=== PATIENT | female | born 1940 | race Caucasian/White ===

== ENCOUNTER 2017-08-14 15:18 | Emergency (ER) | payer MEDICARE, BC ==
[~2017-08-14] VITALS: Ht 167.6 cm; Wt 80.5 kg
[2017-08-14] MEDS ORDERED: DONE1TAB62 PO (15:51)
[2017-08-14] MEDS ORDERED: NAME28CA PO (15:51)
[2017-08-14] MEDS ORDERED: LISI10TA2 PO (15:51)
[2017-08-14] MEDS ORDERED: FLUO40CA PO (15:51)
[2017-08-14] MEDS ORDERED: POTA10TA16 PO (15:51)
[2017-08-14] MEDS ORDERED: LEVO-86 PO (15:51)
[2017-08-14] MEDS ORDERED: NS 1,000 ML IV SCH (16:25)
[2017-08-14] MEDS ORDERED: MECLIZINE 25 MG TABLET PO ONE (16:30)
--- NOTE | 2017-08-14 16:51 | REP ---
Clinical: Altered mental status . Comparison: 01/08/2011 . Technique: PA and lateral. Findings: The mediastinum and cardiac silhouette are normal. The lung calix are clear and without acute consolidation, effusion, or pneumothorax. The skeletal structures demonstrate degenerative changes of the bilateral shoulders. Evidence of prior cholecystectomy. Impression: 1. No acute cardiopulmonary process. Signed by Ross Butler MD 08/14/2017 04:42 P
[2017-08-14 17:05] LABS: VENOUS BASE EXCESS 1.4 (-2.0-2.0); VENOUS O2 SATURATION 74.5 % (60.0-80.0); VENOUS PARTIAL PRESSURE CO2 47.3 mmHg (38.0-50.0); VENOUS PARTIAL PRESSURE O2 38.9 mmHg (30.0-50.0); VENOUS STANDARD HCO3 25.1 MEQ/L; VENOUS TOTAL CO2 28.7 MEQ/L (24.0-28.0)
[2017-08-14 17:19] LABS: BASO % 0.6 % (0.0-1.0); EOS # 0.2 10^3/uL (0.0-0.50); IMMATURE GRANULOCYTE % 0.3 % (0-0); LYMPH # 0.7 10^3/uL (1.5-4.5); LYMPH % 11.3 % (24.0-44.0); MEAN CORPUSCULAR HGB CONC 34.2 g/dl (32.0-36.5); MEAN CORPUSCULAR VOLUME 90.8 fl (80.0-96.0); MONO # 0.8 10^3/uL (0.0-0.8); MONO % 12.1 % (0.0-5.0); NEUTROPHILS # 4.5 10^3/uL (1.8-7.7); NEUTROPHILS % 72.7 % (36.0-66.0); PLATELET COUNT, AUTOMATED 262 10^3/uL (150-450); RED CELL DISTRIBUTION WIDTH 13.2 % (11.5-14.5); WHITE BLOOD COUNT 6.3 10^3/uL (4.0-10.0)
[2017-08-14 17:32] LABS: ALBUMIN 3.9 GM/DL (3.2-5.2); ALBUMIN/GLOBULIN RATIO 1.39 (1.00-1.93); ALKALINE PHOSPHATASE 48 U/L (45-117); ANION GAP 7 MEQ/L (8-16); AST/SGOT 17 U/L (7-37); BILIRUBIN,DIRECT 0.2 MG/DL (0.0-0.2); BILIRUBIN,TOTAL 0.5 MG/DL (0.2-1.0); BLOOD UREA NITROGEN 32 MG/DL (7-18); CALCIUM LEVEL 10.3 MG/DL (8.8-10.2); CARBON DIOXIDE LEVEL 29 MEQ/L (21-32); CHLORIDE LEVEL 105 MEQ/L (98-107); CREATININE FOR GFR 1.62 MG/DL (0.55-1.02); GLOMERULAR FILTRATION RATE 32.8 (>39); GLUCOSE, FASTING 97 MG/DL (83-110); POTASSIUM SERUM 4.2 MEQ/L (3.5-5.1); SODIUM LEVEL 141 MEQ/L (136-145); TOTAL PROTEIN 6.7 GM/DL (6.4-8.2)
[2017-08-14 17:38] LABS: ALT/SGPT 31 U/L (12-78)
[2017-08-14] MEDS ORDERED: MECL-68 PO (17:58)
[2017-08-14 17:59] VITALS: BP 112/69
--- NOTE | 2017-08-16 06:00 | ECGEPIP ---
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
== END 2017-08-14 18:28 | disposition home or self-care (01) ==
LOC: M ED 15:18
DX: H81.10 Benign paroxysmal vertigo, unspecified ear (principal); H83.09 Labyrinthitis, unspecified ear; E86.0 Dehydration; I10 Essential (primary) hypertension; I25.10 Atherosclerotic heart disease of native coronary artery without angina pectoris; E07.9 Disorder of thyroid, unspecified; F03.90 Unspecified dementia, unspecified severity, without behavioral disturbance, psychotic disturbance, mood disturbance, and anxiety
CPT/HCPCS: 36415; 71020; 80048; 80076; 82550; 82553; 82803; 84443; 84484; 85025; 93005; 93041; 99284; G0480

== ENCOUNTER 2018-04-18 13:50 | Inpatient (IN) | payer MEDICARE, BC, MEDICAID ==
[2018-04-18 15:36] LABS: BASO % 0.7 % (0.0-1.0); EOS # 0.2 10^3/uL (0.0-0.50); EOS % 2.8 % (0.0-3.0); HEMATOCRIT 41.3 % (36.0-47.0); HEMOGLOBIN 13.2 g/dl (12.0-15.5); IMMATURE GRANULOCYTE % 1.2 % (0-3.0); LYMPH # 0.9 10^3/uL (1.5-4.5); MEAN CORPUSCULAR HEMOGLOBIN 29.6 pg (27.0-33.0); MEAN CORPUSCULAR VOLUME 92.6 fl (80.0-96.0); MONO # 0.6 10^3/uL (0.0-0.8); MONO % 9.7 % (0.0-5.0); NEUTROPHILS # 4.4 10^3/uL (1.8-7.7); NEUTROPHILS % 71.6 % (36.0-66.0); PLATELET COUNT, AUTOMATED 289 10^3/uL (150-450); RED BLOOD COUNT 4.46 10^6/uL (4.00-5.40); RED CELL DISTRIBUTION WIDTH 13.6 % (11.5-14.5); WHITE BLOOD COUNT 6.1 10^3/uL (4.0-10.0)
[2018-04-18 15:42] LABS: CALCIUM OXALATE CRYSTALS RFX MODERATE; KETONE, URINE AUTO RFX NEGATIVE (NEGATIVE); MUCUS, URINE RFX MODERATE (NEGATIVE); NITRITE, URINE AUTO RFX NEGATIVE (NEGATIVE); RBC, URINE AUTO RFX 0 /HPF (0-3); SPECIFIC GRAVITY UR AUTO RFX 1.024 (1.002-1.035); SQUAM EPITHELIAL CELL UR AURFX 14 /HPF (0-6); WBC, URINE AUTO RFX 8 /HPF (0-3)
[2018-04-18 15:43] LABS: LEUKOCYTE ESTERASE UR AUTO RFX 1+ (NEGATIVE)
[2018-04-18 16:02] LABS: AMMONIA 12 uMOL/L (<32)
[2018-04-18 16:06] LABS: LACTIC ACID SEPSIS PROTOCOL 1.7 MMOL/L (0.4-2.0)
[2018-04-18 16:09] LABS: ALBUMIN 3.7 GM/DL (3.2-5.2); ALBUMIN/GLOBULIN RATIO 0.95 (1.00-1.93); ALKALINE PHOSPHATASE 71 U/L (45-117); ALT/SGPT 28 U/L (12-78); ANION GAP 7 MEQ/L (8-16); AST/SGOT 17 U/L (7-37); BILIRUBIN,DIRECT 0.1 MG/DL (0.0-0.2); BILIRUBIN,TOTAL 0.4 MG/DL (0.2-1.0); BLOOD UREA NITROGEN 19 MG/DL (7-18); CALCIUM LEVEL 9.2 MG/DL (8.8-10.2); CARBON DIOXIDE LEVEL 30 MEQ/L (21-32); CHLORIDE LEVEL 107 MEQ/L (98-107); CPK CREATINE PHOSPHOKINASE 49 U/L (26-192); CREATININE FOR GFR 1.12 MG/DL (0.55-1.30); GLOMERULAR FILTRATION RATE 50.1 (>39); GLUCOSE, FASTING 111 MG/DL (70-100); POTASSIUM SERUM 3.5 MEQ/L (3.5-5.1); SODIUM LEVEL 144 MEQ/L (136-145); TOTAL PROTEIN 7.6 GM/DL (6.4-8.2); TROPONIN I < 0.02 NG/ML (< 0.10)
[2018-04-18 16:13] LABS: CK-MB VALUE MASS < 1.0 NG/ML (<3.6); MB/CK RELATIVE INDEX 2.04 (< OR =4); THYROID STIMULATING HORMONE 0.998 uIU/ML (0.358-3.740)
[2018-04-18] MEDS: LOTRISONE CREAM 15 GM (BETAMETH/CLOTRIMAZOLE) TOP (21:00)
[2018-04-18] MEDS ORDERED: hydrALAZINE INJ 20 MG/ML VIAL IV (21:30)
[2018-04-18] MEDS ORDERED: ONDANSETRON 4MG/2ML VIAL (J2405) IV (21:30)
[2018-04-18] MEDS: hydroCHLOROthiazide 12.5 MG CAPSULE PO (21:36)
[2018-04-18] MEDS: LISINOPRIL 20 MG TAB PO (21:36)
[2018-04-18] MEDS: cefTRIAXone SOD 1 GM in D5W MINI-BAG PLUS 50 ML IV (22:00)
[2018-04-18 22:58] LABS: CPK CREATINE PHOSPHOKINASE 50 U/L (26-192); TROPONIN I < 0.02 NG/ML (< 0.10)
[2018-04-18 22:59] LABS: CK-MB VALUE MASS < 1.0 NG/ML (<3.6)
[2018-04-19 03:56] LABS: HEMATOCRIT 37.2 % (36.0-47.0); MEAN CORPUSCULAR HEMOGLOBIN 29.3 pg (27.0-33.0); MEAN CORPUSCULAR HGB CONC 32.3 g/dl (32.0-36.5); MEAN CORPUSCULAR VOLUME 90.7 fl (80.0-96.0); PLATELET COUNT, AUTOMATED 252 10^3/uL (150-450); RED CELL DISTRIBUTION WIDTH 13.4 % (11.5-14.5); WHITE BLOOD COUNT 6.2 10^3/uL (4.0-10.0)
[2018-04-19 04:22] LABS: ANION GAP 8 MEQ/L (8-16); BLOOD UREA NITROGEN 16 MG/DL (7-18); CALCIUM LEVEL 9.2 MG/DL (8.8-10.2); CARBON DIOXIDE LEVEL 29 MEQ/L (21-32); CHLORIDE LEVEL 107 MEQ/L (98-107); CK-MB VALUE MASS < 1.0 NG/ML (<3.6); CPK CREATINE PHOSPHOKINASE 47 U/L (26-192); CREATININE FOR GFR 0.96 MG/DL (0.55-1.30); GLOMERULAR FILTRATION RATE 59.8 (>39); GLUCOSE, FASTING 105 MG/DL (70-100); MAGNESIUM LEVEL 2.2 MG/DL (1.8-2.4); MB/CK RELATIVE INDEX 2.12 (< OR =4); POTASSIUM SERUM 3.3 MEQ/L (3.5-5.1); SODIUM LEVEL 144 MEQ/L (136-145); TROPONIN I < 0.02 NG/ML (< 0.10)
[2018-04-19] MEDS: LEVOTHYROXINE 75MCG TABLET (0.075MG) PO (05:51)
[2018-04-19] MEDS: LISINOPRIL 20 MG TAB PO (09:24)
[2018-04-19] MEDS: DOCUSATE SODIUM 100 MG CAP PO ×2 (09:24→21:33)
[2018-04-19] MEDS: POTASSIUM CHLORIDE 10% LIQ 20 MEQ/15 ML UDC PO (09:25)
[2018-04-19] MEDS: DONEPEZIL 5 MG TAB PO (09:25)
[2018-04-19] MEDS: **hydrALAZINE HCL** 25 MG TAB PO ×3 (09:25→21:34)
[2018-04-19] MEDS: hydroCHLOROthiazide 12.5 MG CAPSULE PO (09:26)
[2018-04-19] MEDS: FLUoxetine 20 MG CAP PO (09:26)
[2018-04-19] MEDS: LOTRISONE CREAM 15 GM (BETAMETH/CLOTRIMAZOLE) TOP ×2 (09:26→21:33)
[2018-04-19] MEDS: ENOXAPARIN 40 MG/0.4 ML SYRINGE (J1650) SC (09:26)
[2018-04-19] MEDS: MEMANTINE 5MG TABLET (NAMENDA) PO (21:33)
[2018-04-19] MEDS: cefTRIAXone SOD 1 GM in D5W MINI-BAG PLUS 50 ML IV (21:34)
[2018-04-20] MEDS: LEVOTHYROXINE 75MCG TABLET (0.075MG) PO (05:39)
[2018-04-20] MEDS: **hydrALAZINE HCL** 25 MG TAB PO ×3 (05:39→22:20)
[2018-04-20 06:27] LABS: HEMATOCRIT 37.7 % (36.0-47.0); HEMOGLOBIN 12.6 g/dl (12.0-15.5); MEAN CORPUSCULAR HEMOGLOBIN 30.3 pg (27.0-33.0); MEAN CORPUSCULAR HGB CONC 33.4 g/dl (32.0-36.5); MEAN CORPUSCULAR VOLUME 90.6 fl (80.0-96.0); PLATELET COUNT, AUTOMATED 236 10^3/uL (150-450); RED BLOOD COUNT 4.16 10^6/uL (4.00-5.40); RED CELL DISTRIBUTION WIDTH 13.8 % (11.5-14.5); WHITE BLOOD COUNT 5.6 10^3/uL (4.0-10.0)
[2018-04-20 06:48] LABS: ANION GAP 7 MEQ/L (8-16); BLOOD UREA NITROGEN 18 MG/DL (7-18); CALCIUM LEVEL 8.9 MG/DL (8.8-10.2); CARBON DIOXIDE LEVEL 30 MEQ/L (21-32); CHLORIDE LEVEL 106 MEQ/L (98-107); CREATININE FOR GFR 1.05 MG/DL (0.55-1.30); GLUCOSE, FASTING 107 MG/DL (70-100); POTASSIUM SERUM 3.1 MEQ/L (3.5-5.1); SODIUM LEVEL 143 MEQ/L (136-145)
[2018-04-20] MEDS: hydroCHLOROthiazide 12.5 MG CAPSULE PO (10:14)
[2018-04-20] MEDS: FLUoxetine 20 MG CAP PO (10:14)
[2018-04-20] MEDS: LISINOPRIL 20 MG TAB PO (10:15)
[2018-04-20] MEDS: POTASSIUM CHLORIDE 10 MEQ SR TABLET PO (10:15)
[2018-04-20] MEDS: DONEPEZIL 5 MG TAB PO (10:15)
[2018-04-20] MEDS: ENOXAPARIN 40 MG/0.4 ML SYRINGE (J1650) SC (10:16)
[2018-04-20] MEDS: LOTRISONE CREAM 15 GM (BETAMETH/CLOTRIMAZOLE) TOP ×2 (10:16→21:00)
[2018-04-20] MEDS: DOCUSATE SODIUM 100 MG CAP PO ×2 (10:16→22:19)
[2018-04-20] MEDS: MEMANTINE 5MG TABLET (NAMENDA) PO (22:20)
[2018-04-21 05:28] LABS: HEMATOCRIT 38.6 % (36.0-47.0); HEMOGLOBIN 12.6 g/dl (12.0-15.5); MEAN CORPUSCULAR HEMOGLOBIN 29.8 pg (27.0-33.0); MEAN CORPUSCULAR HGB CONC 32.6 g/dl (32.0-36.5); MEAN CORPUSCULAR VOLUME 91.3 fl (80.0-96.0); PLATELET COUNT, AUTOMATED 238 10^3/uL (150-450); RED BLOOD COUNT 4.23 10^6/uL (4.00-5.40); RED CELL DISTRIBUTION WIDTH 14.3 % (11.5-14.5); WHITE BLOOD COUNT 5.1 10^3/uL (4.0-10.0)
[2018-04-21 05:52] LABS: ANION GAP 8 MEQ/L (8-16); BLOOD UREA NITROGEN 20 MG/DL (7-18); CALCIUM LEVEL 8.9 MG/DL (8.8-10.2); CARBON DIOXIDE LEVEL 27 MEQ/L (21-32); CHLORIDE LEVEL 110 MEQ/L (98-107); CREATININE FOR GFR 1.05 MG/DL (0.55-1.30); GLUCOSE, FASTING 98 MG/DL (70-100); MAGNESIUM LEVEL 2.1 MG/DL (1.8-2.4); POTASSIUM SERUM 3.8 MEQ/L (3.5-5.1); SODIUM LEVEL 145 MEQ/L (136-145)
[2018-04-21] MEDS: LEVOTHYROXINE 75MCG TABLET (0.075MG) PO (06:13)
[2018-04-21] MEDS: **hydrALAZINE HCL** 25 MG TAB PO ×3 (06:15→22:29)
[2018-04-21] MEDS: DOCUSATE SODIUM 100 MG CAP PO ×2 (08:10→22:29)
[2018-04-21] MEDS: FLUoxetine 20 MG CAP PO (08:10)
[2018-04-21] MEDS: DONEPEZIL 5 MG TAB PO (08:10)
[2018-04-21] MEDS: hydroCHLOROthiazide 12.5 MG CAPSULE PO (08:11)
[2018-04-21] MEDS: ENOXAPARIN 40 MG/0.4 ML SYRINGE (J1650) SC (08:11)
[2018-04-21] MEDS: LISINOPRIL 20 MG TAB PO (08:11)
[2018-04-21] MEDS: LOTRISONE CREAM 15 GM (BETAMETH/CLOTRIMAZOLE) TOP ×2 (08:12→22:29)
[2018-04-21] MEDS: MEMANTINE 5MG TABLET (NAMENDA) PO (22:29)
[2018-04-22] MEDS: **hydrALAZINE HCL** 25 MG TAB PO ×3 (06:00→20:42)
[2018-04-22] MEDS: LEVOTHYROXINE 75MCG TABLET (0.075MG) PO (06:01)
[2018-04-22 06:26] LABS: HEMATOCRIT 37.2 % (36.0-47.0); HEMOGLOBIN 12.2 g/dl (12.0-15.5); MEAN CORPUSCULAR HEMOGLOBIN 29.5 pg (27.0-33.0); MEAN CORPUSCULAR HGB CONC 32.8 g/dl (32.0-36.5); MEAN CORPUSCULAR VOLUME 90.1 fl (80.0-96.0); PLATELET COUNT, AUTOMATED 252 10^3/uL (150-450); RED BLOOD COUNT 4.13 10^6/uL (4.00-5.40); RED CELL DISTRIBUTION WIDTH 14.2 % (11.5-14.5)
[2018-04-22 06:48] LABS: ANION GAP 11 MEQ/L (8-16); BLOOD UREA NITROGEN 22 MG/DL (7-18); CALCIUM LEVEL 8.6 MG/DL (8.8-10.2); CARBON DIOXIDE LEVEL 27 MEQ/L (21-32); CHLORIDE LEVEL 104 MEQ/L (98-107); CREATININE FOR GFR 1.04 MG/DL (0.55-1.30); GLOMERULAR FILTRATION RATE 54.6 (>39); GLUCOSE, FASTING 111 MG/DL (70-100); POTASSIUM SERUM 3.7 MEQ/L (3.5-5.1); SODIUM LEVEL 142 MEQ/L (136-145)
[2018-04-22] MEDS: ENOXAPARIN 40 MG/0.4 ML SYRINGE (J1650) SC (09:33)
[2018-04-22] MEDS: FLUoxetine 20 MG CAP PO (09:34)
[2018-04-22] MEDS: LISINOPRIL 20 MG TAB PO (09:34)
[2018-04-22] MEDS: DOCUSATE SODIUM 100 MG CAP PO ×2 (09:35→20:39)
[2018-04-22] MEDS: hydroCHLOROthiazide 12.5 MG CAPSULE PO (09:35)
[2018-04-22] MEDS: DONEPEZIL 5 MG TAB PO (09:36)
[2018-04-22] MEDS: LOTRISONE CREAM 15 GM (BETAMETH/CLOTRIMAZOLE) TOP ×2 (09:37→20:42)
[2018-04-22] MEDS: ACETAMINOPHEN TAB 650MG DOSE (2X325MG) PO (17:26)
[2018-04-22] MEDS: MEMANTINE 5MG TABLET (NAMENDA) PO (20:39)
[2018-04-23 05:55] LABS: HEMATOCRIT 38.4 % (36.0-47.0); HEMOGLOBIN 12.5 g/dl (12.0-15.5); MEAN CORPUSCULAR HEMOGLOBIN 29.7 pg (27.0-33.0); MEAN CORPUSCULAR HGB CONC 32.6 g/dl (32.0-36.5); MEAN CORPUSCULAR VOLUME 91.2 fl (80.0-96.0); PLATELET COUNT, AUTOMATED 270 10^3/uL (150-450); RED BLOOD COUNT 4.21 10^6/uL (4.00-5.40); RED CELL DISTRIBUTION WIDTH 14.4 % (11.5-14.5); WHITE BLOOD COUNT 5.3 10^3/uL (4.0-10.0)
[2018-04-23] MEDS: **hydrALAZINE HCL** 25 MG TAB PO (05:59)
[2018-04-23] MEDS: LEVOTHYROXINE 75MCG TABLET (0.075MG) PO (06:06)
[2018-04-23 06:20] LABS: ANION GAP 10 MEQ/L (8-16); BLOOD UREA NITROGEN 18 MG/DL (7-18); CALCIUM LEVEL 8.8 MG/DL (8.8-10.2); CARBON DIOXIDE LEVEL 26 MEQ/L (21-32); CHLORIDE LEVEL 107 MEQ/L (98-107); CREATININE FOR GFR 1.07 MG/DL (0.55-1.30); GLOMERULAR FILTRATION RATE 52.8 (>39); GLUCOSE, FASTING 103 MG/DL (70-100); MAGNESIUM LEVEL 2.1 MG/DL (1.8-2.4); POTASSIUM SERUM 3.5 MEQ/L (3.5-5.1); SODIUM LEVEL 143 MEQ/L (136-145)
[2018-04-23] MEDS: ENOXAPARIN 40 MG/0.4 ML SYRINGE (J1650) SC (08:59)
[2018-04-23] MEDS: FLUoxetine 20 MG CAP PO (08:59)
[2018-04-23] MEDS: hydroCHLOROthiazide 12.5 MG CAPSULE PO (09:00)
[2018-04-23] MEDS: DONEPEZIL 5 MG TAB PO (09:00)
[2018-04-23] MEDS: LISINOPRIL 20 MG TAB PO (09:00)
[2018-04-23] MEDS: LOTRISONE CREAM 15 GM (BETAMETH/CLOTRIMAZOLE) TOP (09:01)
[2018-04-23] MEDS: DOCUSATE SODIUM 100 MG CAP PO (09:01)
== END 2018-04-23 13:35 | DRG 305 ==
LOC: M MS5PR 04-19 00:05 → M ED 13:50 → M ED INP 21:47
DX: I16.0 Hypertensive urgency (principal); F03.91 Unspecified dementia, unspecified severity, with behavioral disturbance; N39.0 Urinary tract infection, site not specified; E03.9 Hypothyroidism, unspecified; I10 Essential (primary) hypertension; F32.9 Major depressive disorder, single episode, unspecified; Z90.710 Acquired absence of both cervix and uterus; Z87.81 Personal history of (healed) traumatic fracture; Z90.49 Acquired absence of other specified parts of digestive tract; Z87.891 Personal history of nicotine dependence; Z79.899 Other long term (current) drug therapy

== ENCOUNTER → 2018-08-22 | Outpatient (REF) | payer MEDICARE, BC, MEDICAID | LOC: M EKG 18:37 | DX: I49.9 Cardiac arrhythmia, unspecified (principal) | CPT/HCPCS: 93005 ==

== ENCOUNTER → 2018-09-11 | Outpatient (REF) | payer MEDICARE, BC, MEDICAID ==
[~2018-09-11] MED LIST: CLOT1CRE71 TOP; DONE10TA90 PO; DONE1TAB62 PO; FLUO40CA PO; HYDR12CA PO; HYDR25TA PO; LEVO-86 PO; LISI-538 PO; LISI10TA2 PO; MECL-68 PO; MEMA1TAB2 PO; NAME28CA PO; NYST1POW9 TOP; POTA10TA16 PO
[2018-09-11 07:48] LABS: HEMATOCRIT 39.4 % (36.0-47.0); HEMOGLOBIN 12.9 g/dl (12.0-15.5); MEAN CORPUSCULAR HEMOGLOBIN 30.8 pg (27.0-33.0); MEAN CORPUSCULAR HGB CONC 32.7 g/dl (32.0-36.5); PLATELET COUNT, AUTOMATED 191 10^3/uL (150-450); RED BLOOD COUNT 4.19 10^6/uL (4.00-5.40); WHITE BLOOD COUNT 4.8 10^3/uL (4.0-10.0)
[2018-09-11 08:17] LABS: ALBUMIN 3.2 GM/DL (3.2-5.2); ALT/SGPT 20 U/L (12-78); BILIRUBIN,TOTAL 0.5 MG/DL (0.2-1.0); BLOOD UREA NITROGEN 30 MG/DL (7-18); CALCIUM LEVEL 8.7 MG/DL (8.8-10.2); CARBON DIOXIDE LEVEL 28 MEQ/L (21-32); CHLORIDE LEVEL 108 MEQ/L (98-107); CREATININE FOR GFR 0.88 MG/DL (0.55-1.30); GLOMERULAR FILTRATION RATE > 60.0 (>39); GLUCOSE, FASTING 98 MG/DL (70-100); POTASSIUM SERUM 3.9 MEQ/L (3.5-5.1); SODIUM LEVEL 145 MEQ/L (136-145); TOTAL PROTEIN 6.2 GM/DL (6.4-8.2)
== END ==
LOC: SKLAB8 07:00
PROVIDERS: ATTEND Internal Medicine
DX: F03.91 Unspecified dementia, unspecified severity, with behavioral disturbance (principal); I10 Essential (primary) hypertension

== ENCOUNTER → 2018-10-09 | Outpatient (REF) | payer MEDICARE, BC, MEDICAID ==
[2018-10-09 15:03] LABS: HEMATOCRIT 37.5 % (36.0-47.0); HEMOGLOBIN 12.5 g/dl (12.0-15.5); MEAN CORPUSCULAR HEMOGLOBIN 30.7 pg (27.0-33.0); MEAN CORPUSCULAR HGB CONC 33.3 g/dl (32.0-36.5); MEAN CORPUSCULAR VOLUME 92.1 fl (80.0-96.0); PLATELET COUNT, AUTOMATED 244 10^3/uL (150-450); RED BLOOD COUNT 4.07 10^6/uL (4.00-5.40); WHITE BLOOD COUNT 6.5 10^3/uL (4.0-10.0)
[2018-10-09 15:24] LABS: CALCIUM LEVEL 9.1 MG/DL (8.8-10.2); CREATININE FOR GFR 1.09 MG/DL (0.55-1.30); GLOMERULAR FILTRATION RATE 51.5 (>39); POTASSIUM SERUM 4.3 MEQ/L (3.5-5.1)
--- NOTE | 2018-10-09 20:44 | ECGEPIP ---
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 : 1940 Requested By: JEFF SAMANIEGO [facility] Order Number: [id number] Reading MD: Humphrey Oro Measurements Intervals [place] Rate: 79 P: 39 CT: 133 QRS: -7 QRSD: 83 T: 29 QT: 402 QTc: 462 Interpretive Statements SINUS RHYTHM Similar to tracing done 08-22-18 Electronically Signed On 10-09-2018 20:44:20 EST by Humphrey Oro
== END ==
LOC: SKLAB8 14:45
PROVIDERS: ATTEND Internal Medicine
DX: I10 Essential (primary) hypertension (principal)

== ENCOUNTER → 2018-10-16 | Outpatient (REF) | payer MEDICARE, BC, MEDICAID ==
[2018-10-16 10:17] LABS: BLOOD UREA NITROGEN 32 MG/DL (7-18); CALCIUM LEVEL 9.4 MG/DL (8.8-10.2); CARBON DIOXIDE LEVEL 28 MEQ/L (21-32); CHLORIDE LEVEL 106 MEQ/L (98-107); CREATININE FOR GFR 0.94 MG/DL (0.55-1.30); GLOMERULAR FILTRATION RATE > 60.0 (>39); GLUCOSE, FASTING 150 MG/DL (70-100); POTASSIUM SERUM 3.9 MEQ/L (3.5-5.1); SODIUM LEVEL 142 MEQ/L (136-145)
== END ==
LOC: SKLAB8 08:00
PROVIDERS: ATTEND Internal Medicine
DX: F03.90 Unspecified dementia, unspecified severity, without behavioral disturbance, psychotic disturbance, mood disturbance, and anxiety (principal); I10 Essential (primary) hypertension

== ENCOUNTER → 2018-11-07 | Outpatient (REF) | payer MEDICARE, BC, MEDICAID ==
[2018-11-07 15:46] LABS: HEMATOCRIT 39.2 % (36.0-47.0); HEMOGLOBIN 12.8 g/dl (12.0-15.5); MEAN CORPUSCULAR HEMOGLOBIN 30.1 pg (27.0-33.0); MEAN CORPUSCULAR HGB CONC 32.7 g/dl (32.0-36.5); MEAN CORPUSCULAR VOLUME 92.2 fl (80.0-96.0); PLATELET COUNT, AUTOMATED 281 10^3/uL (150-450); RED BLOOD COUNT 4.25 10^6/uL (4.00-5.40); WHITE BLOOD COUNT 9.6 10^3/uL (4.0-10.0)
[2018-11-07 16:05] LABS: CALCIUM LEVEL 9.2 MG/DL (8.8-10.2); CREATININE FOR GFR 1.18 MG/DL (0.55-1.30); POTASSIUM SERUM 4.2 MEQ/L (3.5-5.1)
== END ==
LOC: SKLAB8 14:00
PROVIDERS: ATTEND Internal Medicine
DX: F03.90 Unspecified dementia, unspecified severity, without behavioral disturbance, psychotic disturbance, mood disturbance, and anxiety (principal); I10 Essential (primary) hypertension

== ENCOUNTER → 2018-11-08 | Outpatient (REF) | payer MEDICARE, BC, MEDICAID | LOC: SKLAB8 05:30 | PROVIDERS: ATTEND Internal Medicine | DX: R39.89 Other symptoms and signs involving the genitourinary system (principal) ==

== ENCOUNTER → 2018-12-16 | Outpatient (REF) | payer MEDICARE, BC, MEDICAID ==
[2018-12-17 10:29] LABS: BLOOD UREA NITROGEN 32 MG/DL (7-18); CALCIUM LEVEL 9.1 MG/DL (8.8-10.2); CARBON DIOXIDE LEVEL 29 MEQ/L (21-32); CHLORIDE LEVEL 108 MEQ/L (98-107); CREATININE FOR GFR 0.94 MG/DL (0.55-1.30); GLOMERULAR FILTRATION RATE > 60.0 (>39); GLUCOSE, FASTING 183 MG/DL (70-100); SODIUM LEVEL 144 MEQ/L (136-145)
== END ==
LOC: SKLAB8 08:00
PROVIDERS: ATTEND Internal Medicine
DX: N18.3 Chronic kidney disease, stage 3 (moderate) (principal)

== ENCOUNTER → 2019-01-02 | Outpatient (REF) | payer MEDICARE, BC, MEDICAID | LOC: SKLAB8 08:03 | PROVIDERS: ATTEND Internal Medicine | DX: Z79.899 Other long term (current) drug therapy (principal) ==

== ENCOUNTER → 2019-02-05 | Outpatient (REF) | payer MEDICARE, BC, MEDICAID ==
[2019-02-05 10:09] LABS: BASO % 0.5 % (0.0-1.0); EOS # 0.2 10^3/uL (0.0-0.50); EOS % 5.2 % (0.0-3.0); HEMATOCRIT 36.5 % (36.0-47.0); HEMOGLOBIN 11.7 g/dl (12.0-15.5); LYMPH # 0.9 10^3/uL (1.5-4.5); LYMPH % 22.9 % (24.0-44.0); MEAN CORPUSCULAR HEMOGLOBIN 29.5 pg (27.0-33.0); MEAN CORPUSCULAR HGB CONC 32.1 g/dl (32.0-36.5); MEAN CORPUSCULAR VOLUME 91.9 fl (80.0-96.0); MONO # 0.6 10^3/uL (0.0-0.8); MONO % 13.5 % (0.0-5.0); NEUTROPHILS # 2.4 10^3/uL (1.8-7.7); NEUTROPHILS % 57.7 % (36.0-66.0); PLATELET COUNT, AUTOMATED 171 10^3/uL (150-450); RED BLOOD COUNT 3.97 10^6/uL (4.00-5.40); WHITE BLOOD COUNT 4.1 10^3/uL (4.0-10.0)
[2019-02-05 10:24] LABS: BLOOD UREA NITROGEN 26 MG/DL (7-18); CALCIUM LEVEL 9.3 MG/DL (8.8-10.2); CARBON DIOXIDE LEVEL 30 MEQ/L (21-32); CHLORIDE LEVEL 109 MEQ/L (98-107); CREATININE FOR GFR 0.81 MG/DL (0.55-1.30); GLOMERULAR FILTRATION RATE > 60.0 (>39); GLUCOSE, FASTING 117 MG/DL (70-100); POTASSIUM SERUM 3.5 MEQ/L (3.5-5.1); SODIUM LEVEL 145 MEQ/L (136-145)
== END ==
LOC: SKLAB8 02-04 19:55
PROVIDERS: ATTEND Internal Medicine
DX: F03.91 Unspecified dementia, unspecified severity, with behavioral disturbance (principal)

== ENCOUNTER → 2019-03-12 | Outpatient (REF) | payer MEDICARE, MEDICAID ==
[2019-03-12 09:22] LABS: HEMATOCRIT 34.6 % (36.0-47.0); HEMOGLOBIN 10.8 g/dl (12.0-15.5); MEAN CORPUSCULAR HEMOGLOBIN 28.5 pg (27.0-33.0); MEAN CORPUSCULAR HGB CONC 31.2 g/dl (32.0-36.5); MEAN CORPUSCULAR VOLUME 91.3 fl (80.0-96.0); PLATELET COUNT, AUTOMATED 156 10^3/uL (150-450); RED BLOOD COUNT 3.79 10^6/uL (4.00-5.40); WHITE BLOOD COUNT 4.2 10^3/uL (4.0-10.0)
[2019-03-12 09:39] LABS: ALBUMIN 3.5 GM/DL (3.2-5.2); ALT/SGPT 19 U/L (12-78); BILIRUBIN,TOTAL 0.3 MG/DL (0.2-1.0); BLOOD UREA NITROGEN 28 MG/DL (7-18); CALCIUM LEVEL 9.1 MG/DL (8.8-10.2); CARBON DIOXIDE LEVEL 30 MEQ/L (21-32); CHLORIDE LEVEL 107 MEQ/L (98-107); CREATININE FOR GFR 0.93 MG/DL (0.55-1.30); GLOMERULAR FILTRATION RATE > 60.0 (>39); GLUCOSE, FASTING 87 MG/DL (70-100); POTASSIUM SERUM 3.9 MEQ/L (3.5-5.1); SODIUM LEVEL 144 MEQ/L (136-145); TOTAL PROTEIN 6.8 GM/DL (6.4-8.2)
== END ==
LOC: SKLAB8 07:00
PROVIDERS: ATTEND Internal Medicine
DX: E03.9 Hypothyroidism, unspecified (principal); F03.90 Unspecified dementia, unspecified severity, without behavioral disturbance, psychotic disturbance, mood disturbance, and anxiety

== ENCOUNTER → 2019-04-16 | Outpatient (REF) | payer MEDICARE, MEDICAID ==
[~2019-04-16] MED LIST changes: +LISI10TA15 PO; -LISI10TA2 PO
== END ==
LOC: SKLAB8 10:00
PROVIDERS: ATTEND Internal Medicine
DX: R79.89 Other specified abnormal findings of blood chemistry (principal)

== ENCOUNTER → 2019-04-30 | Outpatient (REF) | payer MEDICARE, MEDICAID ==
[~2019-04-30] MED LIST changes: -MECL-68 PO; +MECL1TAB31 PO; +MEMA10TA19 PO; -MEMA1TAB2 PO
[2019-04-30 15:27] LABS: HEMATOCRIT 33.8 % (36.0-47.0); HEMOGLOBIN 10.9 g/dl (12.0-15.5); MEAN CORPUSCULAR HEMOGLOBIN 29.8 pg (27.0-33.0); MEAN CORPUSCULAR HGB CONC 32.2 g/dl (32.0-36.5); MEAN CORPUSCULAR VOLUME 92.3 fl (80.0-96.0); PLATELET COUNT, AUTOMATED 206 10^3/uL (150-450); RED BLOOD COUNT 3.66 10^6/uL (4.00-5.40); WHITE BLOOD COUNT 4.5 10^3/uL (4.0-10.0)
[2019-04-30 15:31] LABS: APPEARANCE, URINE CLEAR (CLEAR); BACTERIA, URINE AUTO NEGATIVE (NEGATIVE); BILIRUBIN, URINE AUTO NEGATIVE (NEGATIVE); BLOOD, URINE BLOOD NEGATIVE (NEGATIVE); COLOR, URINE YELLOW (YELLOW); GLUCOSE, URINE (UA) AUTO NEGATIVE (NEGATIVE); KETONE, URINE AUTO NEGATIVE (NEGATIVE); LEUKOCYTE ESTERASE, URINE AUTO NEGATIVE (NEGATIVE); MUCUS, URINE SMALL (NEGATIVE); NITRITE, URINE AUTO NEGATIVE (NEGATIVE); PROTEIN, URINE AUTO NEGATIVE (NEGATIVE); RBC, URINE AUTO 3 /HPF (0-3); SQUAMOUS EPITHELIAL CELL UR AU 0 /HPF (0-6); UROBILINOGEN, URINE AUTO 0.2 mg/dL (0.0-2.0); WBC, URINE AUTO 0 /HPF (0-3)
[2019-04-30 15:49] LABS: ALBUMIN 2.8 GM/DL (3.2-5.2); BILIRUBIN,TOTAL 0.3 MG/DL (0.2-1.0); CALCIUM LEVEL 9.2 MG/DL (8.8-10.2); CREATININE FOR GFR 0.99 MG/DL (0.55-1.30); GLOMERULAR FILTRATION RATE 57.6 (>39); TOTAL PROTEIN 6.7 GM/DL (6.4-8.2)
== END ==
LOC: SKLAB8 07:00
PROVIDERS: ATTEND Internal Medicine
DX: R53.83 Other fatigue (principal)

== ENCOUNTER → 2019-05-28 | Outpatient (REF) | payer MEDICARE, MEDICAID ==
[~2019-05-28] MED LIST changes: +MECL-68 PO; -MECL1TAB31 PO; -MEMA10TA19 PO; +MEMA1TAB2 PO
== END ==
LOC: SKLAB8 07:00
PROVIDERS: ATTEND Internal Medicine
DX: F03.91 Unspecified dementia, unspecified severity, with behavioral disturbance (principal); I12.9 Hypertensive chronic kidney disease with stage 1 through stage 4 chronic kidney disease, or unspecified chronic kidney disease; N18.9 Chronic kidney disease, unspecified; R53.83 Other fatigue

== ENCOUNTER → 2019-07-09 | Outpatient (REF) | payer MEDICARE, MEDICAID | LOC: SKLAB8 07:00 | PROVIDERS: ATTEND Internal Medicine | DX: Z51.81 Encounter for therapeutic drug level monitoring (principal); Z79.899 Other long term (current) drug therapy ==

== ENCOUNTER → 2019-08-20 | Outpatient (REF) | payer MEDICARE, MEDICAID | LOC: SKLAB8 08:00 | PROVIDERS: ATTEND Nurse Practitioner Family | DX: F03.91 Unspecified dementia, unspecified severity, with behavioral disturbance (principal) ==

== ENCOUNTER → 2019-09-10 | Outpatient (REF) | payer MEDICARE, MEDICAID ==
[~2019-09-10] MED LIST changes: +MEMA10TA19 PO; -MEMA1TAB2 PO
[2019-09-10 09:07] LABS: HEMATOCRIT 30.5 % (36.0-47.0); HEMOGLOBIN 9.1 g/dl (12.0-15.5); MEAN CORPUSCULAR HEMOGLOBIN 25.5 pg (27.0-33.0); MEAN CORPUSCULAR HGB CONC 29.8 g/dl (32.0-36.5); MEAN CORPUSCULAR VOLUME 85.4 fl (80.0-96.0); PLATELET COUNT, AUTOMATED 187 10^3/uL (150-450); RED BLOOD COUNT 3.57 10^6/uL (4.00-5.40); WHITE BLOOD COUNT 3.8 10^3/uL (4.0-10.0)
[2019-09-10 09:37] LABS: ALBUMIN 2.9 GM/DL (3.2-5.2); ALT/SGPT 12 U/L (12-78); BILIRUBIN,TOTAL 0.3 MG/DL (0.2-1.0); BLOOD UREA NITROGEN 26 MG/DL (7-18); CALCIUM LEVEL 8.5 MG/DL (8.8-10.2); CARBON DIOXIDE LEVEL 27 MEQ/L (21-32); CHLORIDE LEVEL 112 MEQ/L (98-107); CREATININE FOR GFR 0.88 MG/DL (0.55-1.30); GLOMERULAR FILTRATION RATE > 60.0 (>32); GLUCOSE, FASTING 87 MG/DL (70-100); SODIUM LEVEL 145 MEQ/L (136-145)
== END ==
LOC: SKLAB8 07:00
PROVIDERS: ATTEND Internal Medicine
DX: D64.9 Anemia, unspecified (principal)

== ENCOUNTER → 2019-09-25 | Outpatient (REF) | payer MEDICARE, MEDICAID ==
[~2019-09-25] MED LIST changes: -MECL-68 PO; +MECL1TAB31 PO
[2019-09-25 07:07] LABS: HEMATOCRIT 31.1 % (36.0-47.0); HEMOGLOBIN 9.2 g/dl (12.0-15.5); MEAN CORPUSCULAR HEMOGLOBIN 24.9 pg (27.0-33.0); MEAN CORPUSCULAR HGB CONC 29.6 g/dl (32.0-36.5); MEAN CORPUSCULAR VOLUME 84.3 fl (80.0-96.0); PLATELET COUNT, AUTOMATED 174 10^3/uL (150-450); RED BLOOD COUNT 3.69 10^6/uL (4.00-5.40)
== END ==
LOC: SKLAB8 07:00
PROVIDERS: ATTEND Internal Medicine
DX: Z79.899 Other long term (current) drug therapy (principal)

== ENCOUNTER → 2019-12-09 | Outpatient (REF) | payer MEDICARE, MEDICAID ==
[~2019-12-09] MED LIST changes: -DONE1TAB62 PO; +DONE1TAB64 PO
== END ==
LOC: SKLAB8 07:00
PROVIDERS: ATTEND Internal Medicine
DX: Z79.899 Other long term (current) drug therapy (principal)

== ENCOUNTER → 2020-01-07 | Outpatient (REF) | payer MEDICARE, MEDICAID | LOC: SKLAB8 07:00 | PROVIDERS: ATTEND Internal Medicine | DX: F03.91 Unspecified dementia, unspecified severity, with behavioral disturbance (principal) ==

== ENCOUNTER 2020-02-10 10:08 | Emergency (ER) | payer MEDICARE, MEDICAID ==
[2020-02-10] MEDS: EPINEPHrine 1MG/10ML SYRINGE 1.5IN IV STA (10:22)
[2020-02-10] MEDS: EPINEPHrine 1MG/10ML SYRINGE 1.5IN IV SCH ×9 (10:27→12:15)
[2020-02-10] MEDS ORDERED: NS 1,000 ML IV ONE (11:00)
[2020-02-10 11:07] LABS: HEMATOCRIT 32.7 % (36.0-47.0); HEMOGLOBIN 8.5 g/dl (12.0-15.5); MEAN CORPUSCULAR HEMOGLOBIN 21.9 pg (27.0-33.0); MEAN CORPUSCULAR VOLUME 84.3 fl (80.0-96.0); PLATELET COUNT, AUTOMATED 276 10^3/uL (150-450); RED BLOOD COUNT 3.88 10^6/uL (4.00-5.40)
[2020-02-10 11:11] LABS: WHITE BLOOD COUNT 20.7 10^3/uL (4.0-10.0)
[2020-02-10 11:16] LABS: INR 2.2; PROTHROMBIN TIME 24.2 SECONDS (11.8-14.0)
[2020-02-10 11:31] LABS: BASOPHILS 2 % (0-1); EOSINOPHILS 6 % (0-3); LYMPHOCYTES 55 % (16-44); MONOCYTES 5 % (0-5); NEUTROPHILS 30 % (28-66)
[2020-02-10 11:32] LABS: PLATELET ESTIMATE NORMAL (NORMAL)
[2020-02-10] MEDS: SODIUM BICARBONATE 8.4% INJ 50 ML SYRINGE IV PRN ×3 (11:37→12:03)
[2020-02-10] MEDS ORDERED: EPINEPHrine 1MG/10ML SYRINGE 1.5IN As Ordered ONE (11:38)
[2020-02-10] MEDS ORDERED: SODIUM BICARBONATE 8.4% INJ 50 ML SYRINGE As Ordered ONE (11:42)
--- NOTE | 2020-02-10 11:43 | REP ---
CHEST, SINGLE VIEW: Single view of the chest is performed and compared to a prior study of 04/18/2018. Diffuse bilateral infiltrates are present, left greater than right. The heart is upper limits of normal to slightly enlarged. There is calcification and ectasia of the thoracic aorta. There is an endotracheal tube with the tip 2.2 cm above the jose. Oval calcific bodies are seen at the shoulder joints bilaterally. Electronically Signed by Chadwick Bernabe MD 02/10/2020 04:42 P
[2020-02-10 11:51] LABS: PARTIAL THROMBOPLASTIN TIME 109.9 SECONDS (25.0-38.4)
[2020-02-10] MEDS ORDERED: SODIUM BICARBONATE 150 MEQ in D5W 1,000 ML IV SCH (12:00)
[2020-02-10] MEDS: DOPamine HCL 400 MG in IV 1 EA IV SCH ×2 (12:00→12:16)
[2020-02-10] MEDS ORDERED: EPINEPHrine 1MG/10ML SYRINGE 1.5IN IV STA (12:44)
[2020-02-10] MEDS ORDERED: EPINEPHrine 1MG/10ML SYRINGE 1.5IN IV SCH (13:00)
--- NOTE | 2020-02-10 13:42 | ER ---
DATE OF CONSULTATION: 02/10/2020 CRITICAL CARE TIME: Was an hour. This excludes all procedures. I was called by the emergency room physician to attend Natasha Grande, who is an 79-year-old female who has a history of dementia, hypertension, hyperlipidemia, from detention. Apparently, she had a sudden collapse at the detention, was found to have severe hypoxia, bradycardia which progressed to asystole and arrest. She had PEA on arrival to the emergency room. Cardiopulmonary resuscitation (CPR) was performed by ER staff and there was return of spontaneous circulation. It appeared that the patient had underlying atrial fibrillation (AFib). She had a second event requiring CPR with epinephrine and compressions and again return of pulse. She was severely acidotic with a pH of 6.7. On my arrival to the room the patient was intubated, the telemetry showed a fib with slow response and decreasing heart rate and then lost her pulse. CPR was initiated. After epinephrine, compressions, and sodium bicarbonate, along with calcium, rhythm was returned to an atrial fibrillation with a pulse. I then ordered a bicarbonate drip and ordered dopamine to be mixed, as it appeared that the patient was having bradycardia. As soon as the epinephrine would wear off, she would cata down. This happened two more times. On her fifth cycle of CPR, after 10 minutes, no further CPR was performed, as she had been under CPR for a long period of time without any spontaneous return to circulation. It was called at 12:21. Of note, when initially looking at the left internal jugular (vein) (IJ), there was a large clot burden. Central line was never placed as the patient continued to have arrest. My suspicion is the patient had severe cardiogenic shock and significant bradycardia which progressed to asystole. At no time was there any evidence of ventricular fibrillation (v fib) or ventricular tachycardia (V-TACH) or a shockable rhythm. The patient did have severe acidosis on arrival, which could have been complicating the picture. Although oxygen saturations were adequate when able to be measured, there were significant amounts of hemorrhage at the endotracheal tube. The case will be handed over to [facility]. The patient was never admitted to the hospital, as she in the emergency room. MICHAEL
--- NOTE | 2020-02-11 05:43 | ECGEPIP ---
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
== END 2020-02-10 13:35 | disposition expired ==
LOC: EDBD 10:08 → M ED 10:08
DX: I46.9 Cardiac arrest, cause unspecified (principal); R00.1 Bradycardia, unspecified; I48.91 Unspecified atrial fibrillation; E87.2 Acidosis; R91.8 Other nonspecific abnormal finding of lung field; I45.10 Unspecified right bundle-branch block; I12.9 Hypertensive chronic kidney disease with stage 1 through stage 4 chronic kidney disease, or unspecified chronic kidney disease; F03.90 Unspecified dementia, unspecified severity, without behavioral disturbance, psychotic disturbance, mood disturbance, and anxiety; N18.9 Chronic kidney disease, unspecified; E03.9 Hypothyroidism, unspecified; F32.9 Major depressive disorder, single episode, unspecified; Z79.899 Other long term (current) drug therapy
CPT/HCPCS: 31500; 36415; 36600; 51701; 71045; 80047; 82803; 83605; 84443; 84484; 85025; 85610; 85730; 93005; 93041; 96365; 96375; 96376; 99291; 99292; J1265